=== PATIENT | male | born 1975 ===

== ENCOUNTER 2016-12-22 21:55 | Emergency (ER) | payer SELFPAY ==
[2016-12-22 22:47] VITALS: BP 148/73; PULSE 80; RESP 14; TEMP 98.1; O2SAT 98
--- NOTE | 2016-12-22 23:30 | C.PDOC ---
History Of Present Illness 41 year old patient presents to the ED complaining of right tibial topete pain for the past week. Patient denies any trauma, numbness, weakness, fall, recent travel, recent fractures, or recent immobility. Time Seen by Provider: 12/22/16 22:52 Chief Complaint (Nursing): Lower Extremity Problem/Injury History Per: Patient History/Exam Limitations: no limitations Onset/Duration Of Symptoms: Other (1 week) Current Symptoms Are (Timing): Still Present Severity: Mild Pain Scale Rating Of: 3 Recent travel outside of the [place]: No Past Medical History Reviewed: Historical Data, Nursing Documentation, Vital Signs Vital Signs: Last Vital Signs Temp 98.1 F 12/22/16 22:45 Pulse 80 12/22/16 22:45 Resp 14 12/22/16 22:45 BP 148/73 12/22/16 22:45 Pulse Ox 98 12/23/16 01:22 - [email or web address] Procedures CLOSURE SKIN & SUBCUTANEOUS NEC (03/19/13) TETANUS TOXOID ADMINIST (03/19/13) Family History: States: Unknown Family Hx - Social History Hx Alcohol Use: Yes Hx Substance Use: No - Immunization History Hx Tetanus Toxoid Vaccination: Yes Hx Influenza Vaccination: No Hx Pneumococcal Vaccination: No Review Of Systems Except As Marked, All Systems Reviewed And Found Negative. Musculoskeletal: Positive for: Leg Pain (right tibial topete) Neurological: Negative for: Weakness, Numbness Physical Exam - Physical Exam Appears: Non-toxic, No Acute Distress Skin: Warm, Dry Extremity: Normal ROM, No Pedal Edema, No Calf Tenderness, Capillary Refill (<2 seconds), No Deformity, No Swelling, Other (right tibial topete: (-)swelling (-) erythema (-)warmth (-)right calf tenderness (+)normal motor, sensation and strength (+)good pulse (+)capillary refill <2 seconds (+)patient is able to ambulate on this leg) Extremity: Bilateral: Normal Color And Temperature Neurological/Psych: Oriented x3, Normal Speech, Normal Cognition, Normal Motor, Normal Sensation Gait: Steady ED Course And Treatment O2 Sat by Pulse Oximetry: 98 (RA) Pulse Ox Interpretation: Normal Progress Note: Motrin given. Disposition - Disposition Referrals: [facility] [Outside] Disposition: HOME/ ROUTINE Disposition Time: 23:27 Condition: GOOD Additional Instructions: Please follow up with PMD Take meds as directed Return to ER if worse Prescriptions: Ibuprofen [Motrin] 600 mg PO Q6H #30 tab Instructions: Leg Pain (ED) Forms: Work Excuse - Clinical Impression Clinical Impression: Leg pain - PA / SAL[employer] / Resident Statement MD/DO has reviewed & agrees with the documentation as recorded. - Scribe Statement The provider has reviewed the documentation as recorded by the Scribe Odette Watt All medical record entries made by the Scribe were at my direction and personally dictated by me. I have reviewed the chart and agree that the record accurately reflects my personal performance of the history, physical exam, medical decision making, and the department course for this patient. I have also personally directed, reviewed, and agree with the discharge instructions and disposition.
== END 2016-12-22 23:51 | disposition home or self-care (01) ==
LOC: C.ER 21:55
DX: M79.661 Pain in right lower leg (principal)

== ENCOUNTER 2017-03-07 02:49 | Emergency (ER) | payer SELFPAY ==
[2017-03-07 03:09] VITALS: O2SAT 98
[2017-03-07] MEDS ORDERED: Bacitracin Ointment 30 GM TUBE TOP STA (03:40)
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
[2017-03-07] MEDS ORDERED: Bacitracin 500 Units/gm Oint Foilpak UD ONE (05:18)
[2017-03-07 06:39] VITALS: BP 116/65; PULSE 70; RESP 18; TEMP 97.4
--- NOTE | 2017-03-07 08:04 | CT ---
PROCEDURE: CT HEAD WITHOUT CONTRAST. HISTORY: injury COMPARISON: None available. TECHNIQUE: Axial computed tomography images were obtained through the head/brain without intravenous contrast. Radiation dose: Total exam DLP = 973 mGy-cm. This CT exam was performed using one or more of the following dose reduction techniques: Automated exposure control, adjustment of the mA and/or kV according to patient size, and/or use of iterative reconstruction technique. FINDINGS: HEMORRHAGE: No intracranial hemorrhage. BRAIN: No mass effect or edema. No atrophy or chronic microvascular ischemic changes. VENTRICLES: Unremarkable. No hydrocephalus. CALVARIUM: Unremarkable. PARANASAL SINUSES: Mild mucosal thickening of the ethmoid air cells. MASTOID AIR CELLS: Unremarkable as visualized. No inflammatory changes. OTHER FINDINGS: None. IMPRESSION: No acute intracranial abnormality. Mild soft swelling overlying the right frontal cranium and right periorbital region. If focal neurologic deficit persists, consider MRI. These findings were preliminarily reported at 5:45 a.m. on 03/07/[address] Reggie Morgan from [facility].
--- NOTE | 2017-03-07 08:13 | CT ---
CT maxillofacial History: Injury. Comparison: None available. Technique: Axial computed tomographic images of the face were performed without intravenous contrast. Subsequently, sagittal and coronal reformatted images were obtained. This CT exam was performed using one or more of the following dose reduction techniques: Automated exposure control, adjustment of the mA and/or kV according to patient size, and/or use of iterative reconstruction technique. Findings: No evidence for acute displaced fracture. Probable small adjacent calcification or chronic avulsion fracture of the maxillary spine. Right periorbital and maxillary soft tissue swelling. Visualized orbits appear grossly preserved as visualized. Mild to moderate mucosal thickening of the right ethmoid sinus. Scattered minimal to mild mucosal thickening of the remaining paranasal sinuses. Prominent dental caries are noted. Impression: No evidence for acute displaced fracture. Probable small adjacent calcification or chronic avulsion fracture of the maxillary spine. Additional findings as above. These findings were preliminarily reported at 5:56 a.m. on 03/07/[address] Reggie Morgan from [facility].
--- NOTE | 2017-03-07 08:24 | CT ---
CT cervical spine History: Neck pain. Comparison: None available. Technique: Multiple contiguous axial images were performed through the cervical spine without the use of intravenous contrast. Subsequently, sagittal and coronal reformatted images were obtained. This CT exam was performed using one or more of the following dose reduction techniques: Automated exposure control, adjustment of the mA and/or kV according to patient size, and/or use of iterative reconstruction technique. Findings Reversal of the normal cervical lordosis. Few inferior endplate concavities at the C3, C4, and C5 vertebral bodies. Mild loss of height of the C6 vertebral body. Multilevel anterior osteophyte formation from the C3-4, C4-5, C5-6, and C6-7 levels. Suggestion of multilevel posterior disc osteophyte complexes most prominent at the C3-4 level. Multilevel uncovertebral joint and facet hypertrophy. Small ossific density seen at the posterior aspect of the left-sided facet of the C6 vertebral body as demonstrated on series 601, image 68 which may represent a prominent osteophyte versus small avulsion injury, possibly chronic. Productive change at the posterior spinous process of the T1 vertebral body. Impression: 1. Multilevel degenerative changes as described with disc osteophyte complexes and resultant spinal canal stenosis. Correlation with MRI may be helpful if clinically indicated. 2. Small ossific density seen at the posterior aspect of the left-sided facet of the C6 vertebral body as demonstrated on series 601, image 68 which may represent a prominent osteophyte versus small avulsion injury, possibly chronic. 3. Productive change at the posterior spinous process of the T1 vertebral body. These findings were preliminarily reported at 5:49 a.m. on 03/07/[address] Reggie Morgan from [facility].
== END 2017-03-07 08:09 | disposition home or self-care (01) ==
LOC: C.ER 02:49
DX: S00.83XA Contusion of other part of head, initial encounter (principal); S10.93XA Contusion of unspecified part of neck, initial encounter; V18.0XXA Pedal cycle driver injured in noncollision transport accident in nontraffic accident, initial encounter; Y92.410 Unspecified street and highway as the place of occurrence of the external cause; F10.129 Alcohol abuse with intoxication, unspecified; Z23 Encounter for immunization